=== PATIENT | female | born 1985 | race Caucasian/White ===

== ENCOUNTER 2017-10-03 05:05 | Emergency (ER) | payer SELFPAY ==
[~2017-10-03] VITALS: Ht 162.6 cm; Wt 105.0 kg
[2017-10-03] MEDS ORDERED: KETOROLAC 30MG/ML VIAL IV ONE (07:00)
[2017-10-03 07:29] LABS: BASOPHILS % 0.9 % (0.0-2.0); EOSINOPHILS % 0.7 % (0.0-5.0); HEMATOCRIT. 42.6 % (36.0-48.0); HEMOGLOBIN. 13.9 g/dL (12.0-16.0); LYMPHOCYTES % 28.8 % (20.0-50.0); MEAN CORPUSCULAR HEMOGLOBIN 26.3 pg (28.0-32.0); MEAN CORPUSCULAR VOLUME 80.9 fL (81.0-99.0); MEAN PLATELET VOLUME 9.1 fl (7.4-10.4); MONOCYTES % 3.4 % (2.0-8.0); NEUTROPHILS % 66.2 % (40.0-76.0); PLATELET 260 x1000/uL (130-400); RED BLOOD CELL COUNT 5.27 mill/uL (4.2-5.4); RED CELL DISTRIBUTION WIDTH 15.1 % (11.6-14.6)
[2017-10-03 07:34] LABS: CHLORIDE 103 mEq/L (98-107)
[2017-10-03 07:42] LABS: CARBON DIOXIDE 28 mEq/L (21-32)
[2017-10-03 07:56] LABS: CLARITY URINE CLEAR (CLEAR); COLOR URINE YELLOW (YELLOW); KETONES URINE NEGATIVE (NEGATIVE); LEUKOCYTE ESTERASE URINE NEGATIVE (NEGATIVE); NITRITE URINE NEGATIVE (NEGATIVE); OCCULT BLOOD URINE 3+ (NEGATIVE); PROTEIN URINE NEGATIVE (NEGATIVE); SPECIFIC GRAVITY URINE 1.016 (1.005-1.030); UROBILINOGEN URINE 0.2 E.U./dL (0.2-1.0)
[2017-10-03 09:55] VITALS: BP 104/58
== END 2017-10-03 09:57 | disposition home or self-care (01) ==
LOC: ER 05:05
DX: K80.20 Calculus of gallbladder without cholecystitis without obstruction (principal); R06.02 Shortness of breath
CPT/HCPCS: 36415; 76705; 80053; 81001; 81025; 83690; 85025; 93005; 96374; 99285; J1885; Z7610